=== PATIENT | male | born 1995 | race Caucasian/White ===

== ENCOUNTER 2025-02-20 10:08 | Emergency (ER) | payer SELFPAY ==
--- NOTE | 2025-02-20 10:12 | ED.MALEGU ---
HPI - Male Genitourinary General Chief complaint: Urogenital-Male Stated complaint: Bladder Infection Time Seen by Provider: 02/20/25 10:12 Source: patient Mode of arrival: ambulatory Limitations: no limitations History of Present Illness HPI Narrative: Tristan is a 29-year-old male patient presenting to the clinic today with complaints a possible UTI. He reports he is having urinary frequency and urgency with urination. States he has intermittent lower abdominal discomfort and low back pain. States he is not currently having that pain at this time. Pain at its worse is 5/10. Is concerned for having a UTI. Denies any concern for STIs. Denies any blood in his urine. He denies any testicle pain or penile discharge. No history of kidney stones. Related Data Home Medications ?Medication ?Instructions ?Recorded ?Confirmed ?Last Taken ?Type lisinopril 10 mg tablet mg 02/20/25 Unknown History Allergies Allergy/AdvReac Type Severity Reaction Status Date / Time No Known Allergies Allergy Verified 02/20/25 10:17 Review of Systems Review of Systems: Pertinent positives per HPI. Patient denies any fever, chills, rash, headache, visual changes, dizziness, cough, runny nose, sore throat, shortness of breath, chest pain, palpitations, nausea, vomiting, diarrhea, constipation, PMFSH Comments At the time of my signature, I reviewed and agree with the nursing past medical, surgical, social, and family history. There is no relevant family history pertinent to the patient complaint. Exam Narrative: General: Well-developed, obese, in no apparent distress. Head: Normocephalic, atraumatic. Cardio: Regular rate and rhythm, s1 and s2 normal, no murmur appreciated. Resp: Clear to auscultation bilaterally, no rhonchi, rales, wheezing or rubs. Abdomen: Soft, pliable, bowel sounds present in all quadrants, non-tender to palpation, no organomegly, no CVAT tenderness. : Deferred Course Course Emergency Course: Portions of this record may have been created with voice recognition software. Level of Care: Express Care Visit Vital Signs Vital signs: Vital Signs Temperature 36.3 C L 02/20/25 10:20 Pulse Rate 63 02/20/25 10:20 Respiratory Rate 18 02/20/25 10:20 Blood Pressure 121/91 H 02/20/25 10:20 Pulse Oximetry 100 02/20/25 10:20 Oxygen Delivery Room Air 02/20/25 10:20 Temperature 36.3 C L 02/20/25 10:20 Pulse Rate 63 02/20/25 10:20 Respiratory Rate 18 02/20/25 10:20 Blood Pressure 121/91 H 02/20/25 10:20 Pulse Oximetry 100 02/20/25 10:20 Oxygen Delivery Room Air 02/20/25 10:20 Vital signs reviewed MDM - Male Genitourinary MDM Narrative Medical decision making narrative: At the time of visit patient is resting comfortably on the exam table. Patient appears to be nontoxic. Complaints a possible UTI. He reports he is having urinary frequency and urgency with urination. States he has intermittent lower abdominal discomfort and low back pain. States he is not currently having that pain at this time. Pain at its worse is 5/10. Is concerned for having a UTI. Denies any concern for STIs. He denies any testicle pain or penile discharge. Denies any blood in his urine. No history of kidney stones. Patient has normal abdomen exam. UA dip ordered Labs: Urinalysis dip performed and shows a trace of intact blood in his urine. No sign of infection Plan: I suspect patient has urinary frequency and urgency. Denies any abdominal pain or back pain at this time. Patient has no history of kidney stones. Recommend following up with PCP for further evaluation to rule out BPH as a potential cause. If his symptoms worsen recommend going to the emergency room and he voiced understanding. Supportive measures were discussed with the patient and they voiced understanding discharge instructions and agrees to treatment plan. Return precautions reviewed Differential Diagnosis Differential diagnosis: Likely urinary tract infection, urethritis and epididymitis Discharge Plan Discharge Clinical Impression: Urinary frequency, Urinary urgency Patient Disposition: Home Condition: Stable Instructions: Antibiotic Form, Urinary Urgency and Frequency (DC) Additional Instructions: Urinalysis shows a trace of blood in your urine. No sign of infection Increase fluids and stay well hydrated If sexually active- pee before and after intercourse. Avoid tight clothing up against the genitals Follow up with your PCP in 1 week if symptoms persist. May go the emergency room if symptoms worse-worsening of urination symptoms, abdominal pain, back pain, fever not controlled by Tylenol Motrin or any other concerning symptoms Patient Language: Yoruba Prescriptions: No Action lisinopril 10 mg tablet Follow-up/Referrals: Travis,Amelie Adames MD [Primary Care Provider, Unknown] Stand Alone Forms: Work/School Release IP Time of Disposition: 10:29 Quality NIHSS Nursing Documentation ED NIHSS nursing documentation: reviewed/agree
[2025-02-20 10:20] VITALS: BP 121/91; PULSE 63; RESP 18; TEMP 36.3; O2SAT 100
[2025-02-20 10:29] LABS: EDUAAPPEAR Clear; EDUABILI Negative (Negative); EDUABLOOD Trace (Negative); EDUACOLOR1 Yellow; EDUAGLUCOSE Negative (Negative); EDUAKETONE Negative (Negative); EDUALEUKO Negative (Negative); EDUANITRATE Negative (Negative); EDUAPH 6.0; EDUAPROTEIN Negative (Negative); EDUASPGRAVITY 1.010; EDUAUROBILI 0.2
== END 2025-02-20 10:33 | disposition home or self-care (01) ==
PROVIDERS: Emergency Provider Nurse Practitioner Family; PCP Student in an Organized Health Care Education/Training Program
DX: R35.0 Frequency of micturition (principal); R39.15 Urgency of urination; I10 Essential (primary) hypertension; Z86.16 Personal history of COVID-19
CPT/HCPCS: 81003; 99202; G0463